=== PATIENT | male | born 1990 | race Caucasian/White ===

== ENCOUNTER 2016-10-20 10:33 | Emergency (ER) | payer MEDICAID ==
[2016-10-20 11:31] LABS: BASOPHILS 0.4 % (0.0-2.0); EOSINOPHILS 1.2 % (0-7); HEMATOCRIT 44.1 % (42.0-54.0); HEMOGLOBIN 15.3 g/dL (13.5-17.5); IMMATURE GRANULOCYTES 0.1 % (0-5); LYMPHOCYTES 37.6 % (15-50); MCH 30.1 pg (26.0-34.0); MCHC 34.7 g/dL (31.0-37.0); MCV 86.8 fL (80.0-100.0); MEAN PLATELET VOLUME 10.5 fL (7.4-10.4); MONOCYTES 7.7 % (2-11); PLATELET COUNT 227 10x3/uL (130-400); RBC 5.08 10x6/uL (4.20-6.10); RDW 12.9 % (11.5-14.5); WBC 8.2 10x3/uL (4.8-10.8)
[2016-10-20 11:43] LABS: APPEARANCE CLEAR (CLEAR); BILIRUBIN NEGATIVE (NEGATIVE); COLOR YELLOW (YELLOW); GLUCOSE NEGATIVE (NEGATIVE); KETONE NEGATIVE (NEGATIVE); LEUKOCYTE ESTERASE NEGATIVE (NEGATIVE); NITRITE NEGATIVE (NEGATIVE); PROTEIN NEGATIVE (NEGATIVE); SPECIFIC GRAVITY 1.015 (1.005-1.020); UROBILINOGEN NORMAL (NORMAL)
[2016-10-20 11:53] LABS: ALBUMIN 3.9 g/dL (3.4-5.0); ALKALINE PHOSPHATASE 88 U/L (46-116); ALT (SGPT) 44 U/L (10-68); BILIRUBIN - TOTAL 0.41 mg/dL (0.2-1.3); CALC OSMOLALITY 282 mosm/kg (275-300); CALCIUM 9.1 mg/dL (8.5-10.1); CARBON DIOXIDE 29.8 mmol/L (21.0-32.0); CHLORIDE - SERUM 103 mmol/L (98-107); CREATININE - SERUM 1.1 mg/dL (0.6-1.3); GLUCOSE 110 mg/dL (74-106); LIPASE 151 U/L (73-393); POTASSIUM - SERUM 3.9 mmol/L (3.5-5.1); PROTEIN - SERUM 7.6 g/dL (6.4-8.2); SODIUM 140 mmol/L (136-145); UREA NITROGEN 20 mg/dL (7-18); eGFR NON AFRICAN AMERICAN 87 mL/min (90-120)
== END 2016-10-20 13:20 | disposition home or self-care (01) ==
LOC: D.ER 10:33
PROVIDERS: Emergency Medicine
DX: R11.10 Vomiting, unspecified (principal); R19.7 Diarrhea, unspecified; E86.0 Dehydration

== ENCOUNTER → 2017-01-20 | Emergency (ER) | payer MEDICAID | END | disposition home or self-care (01) | LOC: D.ER 20:38 | DX: Z02.9 Encounter for administrative examinations, unspecified (principal) ==

== ENCOUNTER 2017-01-21 01:02 | Emergency (ER) | payer MEDICAID ==
[2017-01-21 02:09] LABS: BASOPHILS 0.3 % (0-2); HEMATOCRIT 45.9 % (42.0-54.0); IMMATURE GRANULOCYTES 0.2 % (0-5); LYMPHOCYTES 30.5 % (15-50); MCH 30.3 pg (26.0-34.0); MCHC 34.9 g/dL (31.0-37.0); MCV 86.9 fL (80.0-100.0); MEAN PLATELET VOLUME 10.6 fL (7.4-10.4); MONOCYTES 7.1 % (2-11); NEUTROPHILS 60.9 % (40-80); PLATELET COUNT 242 10x3/uL (130-400); RBC 5.28 10x6/uL (4.20-6.10); RDW 12.3 % (11.5-14.5)
[2017-01-21 02:24] LABS: ALBUMIN 4.2 g/dL (3.4-5.0); ANION GAP 13.5 mmol/L (8-16); BILIRUBIN - TOTAL 0.34 mg/dL (0.2-1.3); CALCIUM 8.8 mg/dL (8.5-10.1); CARBON DIOXIDE 28.4 mmol/L (21.0-32.0); CREATININE - SERUM 1.3 mg/dL (0.6-1.3); POTASSIUM - SERUM 3.9 mmol/L (3.5-5.1); PROTEIN - SERUM 8.2 g/dL (6.4-8.2)
== END 2017-01-21 03:17 | disposition home or self-care (01) ==
LOC: D.ER 01:02
PROVIDERS: Emergency Medicine
DX: K27.9 Peptic ulcer, site unspecified, unspecified as acute or chronic, without hemorrhage or perforation (principal); F17.200 Nicotine dependence, unspecified, uncomplicated

== ENCOUNTER 2017-02-11 01:32 | Emergency (ER) | payer MEDICAID | END 2017-02-11 02:05 | disposition home or self-care (01) | LOC: D.ER 01:32 | DX: H02.9 Unspecified disorder of eyelid (principal); H00.014 Hordeolum externum left upper eyelid; H00.011 Hordeolum externum right upper eyelid ==

== ENCOUNTER 2017-03-24 23:10 | Emergency (ER) | payer MEDICAID ==
[2017-03-24 23:33] LABS: BASOPHILS 0.2 % (0-2); EOSINOPHILS 0.9 % (0-7); HEMATOCRIT 44.9 % (42.0-54.0); HEMOGLOBIN 15.5 g/dL (13.5-17.5); IMMATURE GRANULOCYTES 0.1 % (0-5); LYMPHOCYTES 46.6 % (15-50); MCHC 34.5 g/dL (31.0-37.0); MCV 86.8 fL (80.0-100.0); MEAN PLATELET VOLUME 10.5 fL (7.4-10.4); NEUTROPHILS 46.2 % (40-80); PLATELET COUNT 224 10x3/uL (130-400); RBC 5.17 10x6/uL (4.20-6.10); RDW 12.5 % (11.5-14.5); WBC 9.2 10x3/uL (4.8-10.8)
[2017-03-24 23:46] LABS: ALBUMIN 3.9 g/dL (3.4-5.0); ANION GAP 13.7 mmol/L (8-16); BILIRUBIN - TOTAL 0.47 mg/dL (0.2-1.3); CARBON DIOXIDE 28.1 mmol/L (21.0-32.0); CREATININE - SERUM 1.3 mg/dL (0.6-1.3); POTASSIUM - SERUM 3.8 mmol/L (3.5-5.1); PROTEIN - SERUM 7.8 g/dL (6.4-8.2)
== END 2017-03-25 00:35 | disposition home or self-care (01) ==
LOC: D.ER 23:10
PROVIDERS: Family Medicine
DX: K29.00 Acute gastritis without bleeding (principal); K21.9 Gastro-esophageal reflux disease without esophagitis; R11.10 Vomiting, unspecified; K27.9 Peptic ulcer, site unspecified, unspecified as acute or chronic, without hemorrhage or perforation

== ENCOUNTER 2017-05-05 00:18 | Emergency (ER) | payer MEDICAID | END 2017-05-05 04:50 | disposition home or self-care (01) | LOC: D.ER 00:18 | DX: R51 Headache (principal); K21.9 Gastro-esophageal reflux disease without esophagitis ==

== ENCOUNTER 2017-06-23 01:26 | Emergency (ER) | payer MEDICAID | END 2017-06-23 04:10 | disposition home or self-care (01) | LOC: D.ER 01:26 | DX: K52.9 Noninfective gastroenteritis and colitis, unspecified (principal); Z87.11 Personal history of peptic ulcer disease; F17.200 Nicotine dependence, unspecified, uncomplicated ==

== ENCOUNTER 2020-02-06 18:33 | Emergency (ER) | payer OTHER ==
[~2020-02-06] VITALS: Ht 170.2 cm; Wt 80.9 kg
[2020-02-06 19:07] VITALS: Ht 170.2 cm; Wt 80.9 kg
[2020-02-06 20:46] VITALS: BP 112/67
== END 2020-02-06 20:46 | disposition home or self-care (01) ==
LOC: D.ER 18:33
DX: S16.1XXA Strain of muscle, fascia and tendon at neck level, initial encounter (principal); V89.2XXA Person injured in unspecified motor-vehicle accident, traffic, initial encounter; Y93.9 Activity, unspecified; Y92.9 Unspecified place or not applicable